=== PATIENT | female | born 1995 | race Caucasian/White ===

== ENCOUNTER 2016-10-11 15:31 | Observation (INO) | payer BC ==
[~2016-10-11] VITALS: Ht 157.5 cm; Wt 88.4 kg
[2016-10-11] MEDS ORDERED: birth control PO (16:25)
[2016-10-11 16:50] LABS: BLOOD UREA NITROGEN 9 mg/dL (7-18)
[2016-10-11] MEDS ORDERED: SODIUM CHLORIDE 0.9% 1,000 ML IV ONE ×2 (18:31→18:38)
[2016-10-11] MEDS ORDERED: CEFOTETAN PMX 1GM/50ML 50 ML IVPB ONE (19:00)
[2016-10-11] MEDS ORDERED: SODIUM CHLORIDE FLUSH 10ML SYR IVF ONE (19:00)
[2016-10-11] MEDS ORDERED: ONDANSETRON 2MG/ML, 2ML IVPush PRN (19:00)
[2016-10-11] MEDS ORDERED: SODIUM CHLORIDE FLUSH 10ML SYR IVF PRN (19:00)
[2016-10-11] MEDS ORDERED: MORPHINE SULFATE 4 MG/ML, 1ML IVPush PRN ×2 (19:00)
[2016-10-11] MEDS ORDERED: ONDANSETRON 2MG/ML, 2ML IVPush ONE (19:00)
[2016-10-11] MEDS ORDERED: CEFOTETAN PMX 1GM/50ML 50 ML ONE (19:04)
[2016-10-12 02:37] VITALS: BP 118/70
[2016-10-12] MEDS ORDERED: BUPIVACAINE/PF 0.5% ONE (06:09)
[2016-10-12] MEDS ORDERED: MIDAZOLAM 1 MG/ML, 2ML ONE (06:17)
[2016-10-12] MEDS ORDERED: FENTANYL PF 100 MCG/2ML ONE ×3 (06:17→07:12)
[2016-10-12] MEDS ORDERED: ROCURONIUM 10 MG/ML ONE (06:24)
[2016-10-12] MEDS ORDERED: KETOROLAC 30 MG/1 ML ONE (06:24)
[2016-10-12] MEDS ORDERED: PROPOFOL 10 MG/ML, 20ML ONE (06:24)
[2016-10-12] MEDS ORDERED: NEOSTIGMINE 1 MG/ML, 10ML ONE (06:24)
[2016-10-12] MEDS ORDERED: GLYCOPYRROLATE 0.2MG/1ML ONE (06:24)
[2016-10-12] MEDS ORDERED: LIDOCAINE 1%, 10ML ONE (06:24)
[2016-10-12] MEDS ORDERED: ONDANSETRON 2MG/ML, 2ML ONE (06:24)
[2016-10-12] MEDS ORDERED: DEXAMETHASONE 4 MG/ML, 1ML ONE (06:24)
[2016-10-12] MEDS ORDERED: CEFAZOLIN 1,000 MG ONE (06:24)
[2016-10-12] MEDS ORDERED: METOCLOPRAMIDE 5 MG/ML, 2ML ONE (06:24)
[2016-10-12] MEDS ORDERED: SUCCINYLCHOLINE 20 MG/ML, 10ML ONE (06:24)
[2016-10-12] MEDS ORDERED: BUPIVACAINE/PF 0.5% INFIL ONE (06:38)
[2016-10-12] MEDS ORDERED: MEPERIDINE/PF 25MG/0.5ML IVPush PRN (07:00)
[2016-10-12] MEDS ORDERED: FENTANYL PF 100 MCG/2ML IV PRN (07:00)
[2016-10-12] MEDS ORDERED: OXYcodone 5 MG/5 ML ORAL.SOL UDC PO PRN (07:00)
[2016-10-12] MEDS ORDERED: MIDAZOLAM 1 MG/ML, 2ML IV PRN (07:00)
[2016-10-12] MEDS ORDERED: PROMETHAZINE 25 MG/ML, 1ML IV PRN (07:00)
[2016-10-12] MEDS ORDERED: HYDROmorphone 1 MG/ML, 1ML IV PRN (07:00)
[2016-10-12] MEDS ORDERED: ONDANSETRON 2MG/ML, 2ML IVPush PRN (07:00)
[2016-10-12] MEDS ORDERED: ACETAMINOPHEN 650 MG/20.3 ML UDC ONE (07:12)
[2016-10-12] MEDS ORDERED: OXYcodone 5 MG/5 ML ORAL.SOL UDC ONE (07:12)
[2016-10-12] MEDS ORDERED: OXYcodone/APAP 5/325MG TABLET PO PRN (08:30)
[2016-10-12] MEDS ORDERED: ONDANSETRON 2MG/ML, 2ML IV PRN (08:30)
[2016-10-12] MEDS ORDERED: MORPHINE SULFATE 4 MG/ML, 1ML IV PRN (08:30)
[2016-10-12] MEDS ORDERED: OXYC-223 PO (09:07)
[2016-10-12] MEDS ORDERED: IBUP800T PO (09:07)
== END 2016-10-12 10:50 | disposition home or self-care (01) ==
LOC: ED 18:20 → INTOOBSV 18:38 → EDIP 18:38 → 4NOR 20:03 → UNDODISIN 10-12 10:50
PROVIDERS: ADMIT Surgery; ATTEND Surgery
DX: K35.80 Unspecified acute appendicitis (principal); K66.8 Other specified disorders of peritoneum
CPT/HCPCS: 36415; 44970; 74176; 80048; 81001; 82040; 84703; 85025; 88304; 96365; 99285; G0378; J0330; J0690; J1100; J1885; J2250; J2405; J2704; J2710; J2765; J3010; J3490; J7030; S0074